=== PATIENT | male | born 1945 | race Caucasian/White ===

== ENCOUNTER 2022-08-09 17:38 | Emergency (ER) | payer OTHER ==
--- NOTE | 2022-08-09 18:28 | RAD REPORT ---
EXAM DESCRIPTION: RAD - Knee Right 3 View - 08/09/2022 6:22 pm CLINICAL HISTORY: PAIN COMPARISON: No comparisons FINDINGS: No fracture or dislocation seen. No intraarticular joint fluid. Significant soft tissue sw elling is seen anterior right knee.
--- NOTE | 2022-08-09 18:37 | ER ---
Nurse's Notes [facility] Name: Maximiliano Robles Jr Age: 76 yrs Sex: Male : 1945 Arrival Date: 08/09/2022 Time: 17:40 Bed 27 [facility] MD: Diagnosis: Cellulitis of right lower limb Presentation: 08/09 17:45 Chief complaint: Patient states: Right knee pain - hit knee 4 days on metal bar. Today ld1 pain got worse and pt noticed swelling to knee. Coronavirus screen: At this time, the client does not indicate any symptoms associated with coronavirus-19. Ebola Screen: No symptoms or risks identified at this time. Initial Sepsis Screen: Does the patient meet any 2 criteria? No. Patient's initial sepsis screen is negative. Does the patient have a suspected source of infection? No. Patient's initial sepsis screen is negative. Risk Assessment: Do you want to hurt yourself or someone else? Patient reports no desire to harm self or others. Onset of symptoms was August 09, 2022. 17:45 Method Of Arrival: Ambulatory ld1 17:45 Acuity: ANIL 4 ld1 Triage Assessment: 17:44 General: Appears in no apparent distress. comfortable, Behavior is calm, cooperative, ld1 appropriate for age. Pain: Complains of pain in right knee Pain does not radiate. Pain currently is 8 out of 10 on a pain scale. EENT: No signs and/or symptoms were reported regarding the EENT system. Neuro: Level of Consciousness is awake, alert, obeys commands, Oriented to person, place, time, situation. Cardiovascular: Capillary refill < 3 seconds Patient's skin is warm and dry. Respiratory: Airway is patent Respiratory effort is even, unlabored. GI: Abdomen is flat, non-distended. : No signs and/or symptoms were reported regarding the genitourinary system. Derm: No signs and/or symptoms reported regarding the dermatologic system. Musculoskeletal: No signs and/or symptoms reported regarding the musculoskeletal system. Historical: - Allergies: 17:44 No Known Allergies; ld1 - PMHx: 17:44 Hyperlipidemia; ld1 - PSHx: 17:44 None; ld1 - Immunization history:: Adult Immunizations up to date, Client reports receiving the 2nd dose of the Covid vaccine. - Social history:: Smoking status: Patient/guardian denies using tobacco, the patient reports quitting approximately 20 years ago, Patient uses alcohol, occasionally. Vital Signs: 17:45 BP 172 / 98; Pulse 62; Resp 18; Temp 98.8(O); Pulse Ox 100% on R/A; Weight 85.73 kg; ld1 Height 5 ft. 7 in. (170.18 cm); Pain 8/10; 17:45 Body Mass Index 29.60 (85.73 kg, 170.18 cm) ld1 ED Course: 17:40 Patient arrived in ED. rg4 17:44 Arm band placed on right wrist. ld1 17:46 Triage completed. ld1 17:47 Ev Wilson FNP-C is PHCP. kb 17:47 Norris Stallings MD is Attending Physician. kb 18:24 Knee Right 3 View XRAY In Process Unspecified. EDMS Administered Medications: No medications were administered Outcome: 18:36 Discharge ordered by MD. kb 19:03 Patient left the ED. 3 Signatures: Dispatcher [employer] EDMS Ev Wilson FNP-C FNP-Ckb Garcia, Rubi rg4 Zehra Carrasco, RN RN ld1 Liya Lopez RN RN 3
--- NOTE | 2022-08-09 18:37 | EDPHYS ---
Physician Documentation [facility] Name: Maximiliano Robles Jr Age: 76 yrs Sex: Male : 1945 Arrival Date: 08/09/2022 Time: 17:40 Bed 27 Private MD: ED Physician Norris Stallings HPI: 08/09 20:07 This 76 yrs old Male presents to ER via Ambulatory with complaints of Knee Pain. kb 20:07 The patient presents with pain, that is acute, swelling. The complaints affect the kb right knee. Context: The problem was sustained at home, resulted from a direct blow, the patient can fully bear weight, the patient is able to ambulate. Onset: The symptoms/episode began/occurred 3 day(s) ago. Modifying factors: The symptoms are alleviated by nothing. the symptoms are aggravated by nothing. Associated signs and symptoms: Pertinent positives: swelling, Pertinent negatives calf tenderness, fever, nausea, numbness, rash, tingling, vomiting, warmth, weakness. Treatment prior to arrival includes: no previous treatment. Severity of symptoms: At their worst the symptoms were mild, moderate, in the emergency department the symptoms are unchanged. The patient has not experienced similar symptoms in the past. The patient has not recently seen a physician. Pt reports he hit his right knee on furniture 3 days ago. States it has been red, but didn't start swelling until today. Swelling noted to anterior knee. Historical: - Allergies: 17:44 No Known Allergies; ld1 - PMHx: 17:44 Hyperlipidemia; ld1 - PSHx: 17:44 None; ld1 - Immunization history:: Adult Immunizations up to date, Client reports receiving the 2nd dose of the Covid vaccine. - Social history:: Smoking status: Patient/guardian denies using tobacco, the patient reports quitting approximately 20 years ago, Patient uses alcohol, occasionally. ROS: 20:07 Constitutional: Negative for fever, chills, and weight loss. kb 20:07 MS/extremity: Positive for ecchymosis, pain, swelling. 20:07 All other systems are negative. Exam: 20:06 Constitutional: This is a well developed, well nourished patient who is awake, alert, kb and in no acute distress. Head/Face: Normocephalic, atraumatic. ENT: Moist Mucous membranes Cardiovascular: Regular rate and rhythm with a normal S1 and S2. No gallops, murmurs, or rubs. No pulse deficits. Respiratory: Respirations even and unlabored. No increased work of breathing. Talking in full sentences Abdomen/GI: Soft, non-tender. No distention Skin: Warm, dry with normal turgor. Normal color. Neuro: Awake and alert, GCS 15, oriented to person, place, time, and situation. Moves all extremities. Normal gait. Psych: Awake, alert, with orientation to person, place and time. Behavior, mood, and affect are within normal limits. 20:06 Musculoskeletal/extremity: Extremities: grossly normal except: noted in the right knee: erythema, pain, swelling, ROM: intact in all extremities, Circulation is intact in all extremities. Sensation intact. Weight bearing: able to fully bear weight. Vital Signs: 17:45 BP 172 / 98; Pulse 62; Resp 18; Temp 98.8(O); Pulse Ox 100% on R/A; Weight 85.73 kg; ld1 Height 5 ft. 7 in. (170.18 cm); Pain 8/10; 17:45 Body Mass Index 29.60 (85.73 kg, 170.18 cm) ld1 MDM: 17:47 Patient medically screened. kb 20:06 Data reviewed: vital signs, nurses notes. Data interpreted: Pulse oximetry: on room air kb is 100 %. Interpretation: normal. Counseling: I had a detailed discussion with the patient and/or guardian regarding: the historical points, exam findings, and any diagnostic results supporting the discharge/admit diagnosis, radiology results, the need for outpatient follow up, a family practitioner, to return to the emergency department if symptoms worsen or persist or if there are any questions or concerns that arise at home. 08/09 17:59 Order name: Knee Right 3 View XRAY; Complete Time: 18:31 kb Administered Medications: No medications were administered Disposition Summary: 08/09/22 18:36 Discharge Ordered Location: Home Condition: Stable kb Diagnosis - Cellulitis of right lower limb kb Followup: kb - With: Emergency Department - When: As needed - Reason: Worsening of condition Followup: kb - With: Private Physician - When: 2 - 3 days - Reason: Recheck today's complaints, Continuance of care, Re-evaluation by your physician Discharge Instructions: - Discharge Summary Sheet kb - Cellulitis, Adult, [place]uf-[place]-Eoad kb Forms: - Medication Reconciliation Form kb - Thank You Letter kb - Antibiotic Education kb - Prescription Opioid Use kb Prescriptions: - Cephalexin 500 mg Oral Capsule - take 1 capsule by ORAL route every 8 hours for 10 days; 30 capsule; Refills: 0, kb Product Selection Permitted Signatures: Dispatcher [employer] Ev Bo FNP-C FNP-Ckb Dibbern, Lauren, RN RN ld1
[2022-08-09 19:51] VITALS: BP 172/98; TEMP 98.8; O2SAT 100
== END 2022-08-09 19:03 | disposition home or self-care (01) ==
LOC: ER 17:38
DX: L03.115 Cellulitis of right lower limb (principal)
CPT/HCPCS: 99282